=== PATIENT | female | born 1975 | race Caucasian/White ===

== ENCOUNTER 2019-01-27 16:22 | Emergency (ER) | payer OTHER ==
[2019-01-27] MEDS ORDERED: MORPHINE 4 MG/ML SYR ONE (17:13)
[2019-01-27] MEDS ORDERED: ONDANSETRON 4 MG/2 ML VIAL ONE (17:13)
[2019-01-27 17:16] LABS: Absolute Lymphocytes (CBC) 1.8 K/uL (0.7-4.9); Absolute Monocytes 0.8 K/uL (0.1-1.3); Absolute Neutrophil 6.4 K/uL (1.8-8.0); Basophils % 0.5 % (0-1.3); Eosinophils % 3.2 % (0-4.4); Hematocrit 37.6 % (36.0-45.0); Lymphocytes % 19.3 % (15.3-44.8); MPV 7.6 fL (7.6-11.3); Monocytes % 8.6 % (3.3-12.3); RBC Red Blood Cell Count 4.22 M/uL (3.86-4.86)
--- NOTE | 2019-01-27 17:26 | RAD REPORT ---
EXAM DESCRIPTION: RAD - Ribs Left - 01/27/2019 5:12 pm CLINICAL HISTORY: rib pain cough COMPARISON: No comparisons FINDINGS: No displaced rib fracture seen. No aggressive marrow lesion.
[2019-01-27 17:32] LABS: Albumin 3.6 g/dL (3.4-5.0); Bilirubin Total 0.4 mg/dL (0.2-1.0); Potassium 3.4 mmol/L (3.5-5.1); Protein, Total 7.2 g/dL (6.4-8.2)
--- NOTE | 2019-01-27 19:09 | ER ---
Nurse's Notes [facility] Name: Corrie Manuel Age: 43 yrs Sex: Female : 1975 Arrival Date: 01/27/2019 Time: 16:25 Bed 6 Private MD: Diagnosis: Acute bronchitis Presentation: 01/27 16:29 Presenting complaint: Patient states: cough, congestion x 1 week. Left sided rib pain sv when coughing x 3 days. Transition of care: patient was not received from another setting of care. Onset of symptoms was January 20, 2019. Initial Sepsis Screen: Does the patient meet any 2 criteria? No. Patient's initial sepsis screen is negative. Does the patient have a suspected source of infection? No. Patient's initial sepsis screen is negative. Care prior to arrival: None. 16:29 Method Of Arrival: Ambulatory sv 16:29 Acuity: CATRACHITA 2 sv 19:28 Risk Assessment: Do you want to hurt yourself or someone else? Patient reports no jd3 desire to harm self or others. 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 - Social history:: Smoking status: unknown. - Ebola Screening: : Patient negative for fever greater than or equal to 101.5 degrees Fahrenheit, and additional compatible Ebola Virus Disease symptoms. Screenin:42 Abuse screen: Denies threats or abuse. Denies injuries from another. Nutritional sg screening: No deficits noted. Tuberculosis screening: No symptoms or risk factors identified. Never had TB. Fall Risk None identified. Assessment: 16:40 General: Appears in no apparent distress. comfortable, well groomed, well developed, sg well nourished, Behavior is calm, cooperative, appropriate for age. Pain: Complains of pain in right lateral posterior chest and right lateral anterior chest Quality of pain is described as aching, tender. Neuro: Level of Consciousness is awake, alert, obeys commands, Oriented to person, place, time, situation, Moves all extremities. Full function Gait is steady, Speech is normal, Facial symmetry appears normal. Cardiovascular: Capillary refill is brisk in bilateral fingers Patient's skin is warm and dry. Chest pain quality is sharp, stabbing, is located in right chest wall. Respiratory: Airway is patent Respiratory effort is even, unlabored, Respiratory pattern is regular, symmetrical. GI: Abdomen is round non-distended. : No signs and/or symptoms were reported regarding the genitourinary system. EENT: No signs and/or symptoms were reported regarding the EENT system. Derm: Skin is pink, warm \T\ dry. Musculoskeletal: No signs and/or symptoms reported regarding the musculoskeletal system. 19:29 Reassessment: Patient appears in no apparent distress at this time. Patient and/or jd3 family updated on plan of care and expected duration. Pain level reassessed. Patient is alert, oriented x 3, equal unlabored respirations, skin warm/dry/pink. Patient states feeling better. Vital Signs: 16:31 BP 189 / 135; Pulse 98; Resp 20; Temp 98.5(O); Pulse Ox 100% ; Weight 90.72 kg; Height sv 5 ft. 2 in. (157.48 cm); Pain 8/10; 16:43 BP 185 / 116; Pulse 88; Resp 16; Pulse Ox 100% on R/A; iw 19:26 BP 183 / 105; Pulse 83; Resp 17 S; Pulse Ox 100% on R/A; jd3 16:31 Body Mass Index 36.58 (90.72 kg, 157.48 cm) sv ED Course: 16:25 Patient arrived in ED. as 16:30 Triage completed. sv 16:31 Arm band placed on. sv 16:41 Vern Oneal PA is PHCP. jmm 16:41 Marcellus King MD is Attending Physician. jmm 16:43 Mariana Baltazar, YUE is Primary Nurse. iw 17:00 Initial lab(s) drawn, by me, sent to lab. Inserted saline lock: 20 gauge in right dh3 antecubital area, using aseptic technique. Blood collected. 17:08 Awaiting radiology results. sg 17:11 Ribs Left XRAY In Process Unspecified. EDMS 19:26 Patient has correct armband on for positive identification. Bed in low position. Call jd3 light in reach. Side rails up X 1. Adult w/ patient. 19:26 Assist provider with bone marrow aspiration. IV discontinued, intact, bleeding jd3 controlled, No redness/swelling at site. Pressure dressing applied. Administered Medications: 17:20 Drug: morphine 4 mg Route: IVP; Site: right antecubital; iw 19:00 Follow up: Response: No adverse reaction jd3 17:20 Drug: Zofran 4 mg Route: IVP; Site: right antecubital; iw 19:00 Follow up: Response: No adverse reaction jd3 19:14 Drug: morphine 2 mg Route: IVP; Site: right antecubital; jd3 19:29 Follow up: Response: No adverse reaction jd3 Outcome: 19:08 Discharge ordered by MD. natali 19:28 Discharged to home ambulatory, with family. jd3 19:28 Condition: stable 19:28 Discharge instructions given to patient, family, Instructed on discharge instructions, follow up and referral plans. medication usage, Demonstrated understanding of instructions, follow-up care, medications, Prescriptions given X 3. 19:30 Patient left the ED. jd3 Signatures: Dispatcher [employer] Aby Kohler RN RN Danilo Olvera RN YUE Vern Oneal PA PA jmm Martinez, Amelia as Williams, Irene, RN RN Jessica Green [facility] Roderick Terrazas RN RN jd3 Corrections: (The following items were deleted from the chart) 16:31 16:29 Acuity: CATRACHITA 3 [facility]
--- NOTE | 2019-01-27 19:09 | EDPHYS ---
Physician Documentation [facility] Name: Corrie Manuel Age: 43 yrs Sex: Female : 1975 Arrival Date: 01/27/2019 Time: 16:25 Bed 6 Private MD: ED Physician Marcellus King HPI: 01/27 16:46 This 43 yrs old Female presents to ER via Ambulatory with complaints of Rib jmm Pain. 16:46 The patient or guardian reports cough. Onset: The symptoms/episode began/occurred jmm gradually, 3 week(s) ago. This is a 43 year old female with a history of bipolar that presents to the ED with complaints of left sided rib pain. Patient states that she developed a cough approx 3 weeks ago. The entire family had similar symptoms. Patient states approx 1 week ago she developed left sided rib pain and believs she may have injured her ribs while holding her left side while coughing. Patient denies fever, denies chills, denies chest pain. . 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 - Social history:: Smoking status: unknown. - Ebola Screening: : Patient negative for fever greater than or equal to 101.5 degrees Fahrenheit, and additional compatible Ebola Virus Disease symptoms. ROS: 16:46 Constitutional: Negative for fever, chills, and weight loss, Cardiovascular: Negative jmm for chest pain, palpitations, and edema. 16:46 Respiratory: Positive for cough. 16:46 All other systems are negative. Exam: 16:46 Constitutional: This is a well developed, well nourished patient who is awake, alert, jmm and in no acute distress. Head/Face: atraumatic. Eyes: EOMI, no conjunctival erythema appreciated ENT: Moist Mucus Membranes Neck: Trachea midline, Supple 16:46 Cardiovascular: Regular rate and rhythm. No edema appreciated Respiratory: Normal respirations, no respiratory distress appreciated Abdomen/GI: Non distended, soft Back: Normal ROM 16:46 MS/ Extremity: Moves all extremities, no obvious deformities appreciated, no edema noted to the lower extremities Neuro: Awake and alert, normal gait Psych: Behavior is normal, Mood is normal, Patient is cooperative and pleasant 16:46 Chest/axilla: ecchymosis noted to the left lateral ribs, tender to palpation, reproduces symptoms. . 16:46 Skin: ecchymosis noted ot the left lateral ribs. Vital Signs: 16:31 BP 189 / 135; Pulse 98; Resp 20; Temp 98.5(O); Pulse Ox 100% ; Weight 90.72 kg; Height sv 5 ft. 2 in. (157.48 cm); Pain 8/10; 16:43 BP 185 / 116; Pulse 88; Resp 16; Pulse Ox 100% on R/A; iw 19:26 BP 183 / 105; Pulse 83; Resp 17 S; Pulse Ox 100% on R/A; jd3 16:31 Body Mass Index 36.58 (90.72 kg, 157.48 cm) sv MDM: 16:46 Patient medically screened. [facility] 19:07 Data reviewed: vital signs, nurses notes. Counseling: I had a detailed discussion with natali the patient and/or guardian regarding: the historical points, exam findings, and any diagnostic results supporting the discharge/admit diagnosis, radiology results, the need for outpatient follow up, to return to the emergency department if symptoms worsen or persist or if there are any questions or concerns that arise at home. ED course: Patient states feeling much better. HPI and symptoms appear consistent with diagnosis. I do not suspect acs. Pain is reproduceable. I discussed HTN with the patient along with the need to have this further evaluated. Patient given f/u info for PCP. Patient given strict return precautions. Patient understood and agrees with the plan of care. . 01/27 16:50 Order name: CBC with Diff; Complete Time: 17:27 [facility] 01/27 16:50 Order name: CMP; Complete Time: 17:33 [facility] 01/27 16:50 Order name: Ribs Left XRAY; Complete Time: 17:27 [facility] 01/27 18:26 Order name: INCENTIVE SPIROMETRY [facility] 01/27 16:50 Order name: Saline Lock; Complete Time: 17:05 [facility] Administered Medications: 17:20 Drug: morphine 4 mg Route: IVP; Site: right antecubital; iw 19:00 Follow up: Response: No adverse reaction jd3 17:20 Drug: Zofran 4 mg Route: IVP; Site: right antecubital; iw 19:00 Follow up: Response: No adverse reaction jd3 19:14 Drug: morphine 2 mg Route: IVP; Site: right antecubital; jd3 19:29 Follow up: Response: No adverse reaction jd3 Disposition: 01/27/19 19:08 Discharged to Home. Impression: Acute bronchitis. - Condition is Stable. - Discharge Instructions: Acute Bronchitis, Adult. - Prescriptions for Prednisone 20 mg Oral Tablet - take 3 tablet by ORAL route once daily for 5 days; 15 tablet. Tylenol- Codeine #3 300-30 mg Oral Tablet - take 1 tablet by ORAL route every 6 hours As needed; 12 tablet. Albuterol Sulfate 90 mcg/actuation - inhale 1-2 puff by INHALATION route every 4-6 hours; 1 Inhaler. - Medication Reconciliation Form, Thank You Letter, Antibiotic Education, Prescription Opioid Use form. - Follow up: Private Physician; When: 2 - 3 days; Reason: Recheck today's complaints, Continuance of care, Re-evaluation by your physician. Addendum: 01/28/2019 22:43 Co-signature as Attending Physician, Marcellus King MD. r n Signatures: Dispatcher [employer] Aby Kohler, Vern White RN, PA PA jmm Williams, Irene, RN RN iw Nieto, Roman, MD MD rn Davies, Jonathon, RN RN jd3 Corrections: (The following items were deleted from the chart) 01/27 19:30 19:08 01/27/2019 19:08 Discharged to Home. Impression: Acute bronchitis. Condition is jd3 Stable. Forms are Medication Reconciliation Form, Thank You Letter, Antibiotic Education, Prescription Opioid Use. Follow up: Private Physician; When: 2 - 3 days; Reason: Recheck today's complaints, Continuance of care, Re-evaluation by your physician. natali 20:26 19:07 ED course: Patient states feeling much better. I discussed HTN with the patient natali along with the need to have this further evaluated. Patient given f/u info for PCP. Patient given strict return precautions. Patient understood and agrees with the plan of care. . natali
[2019-01-27] MEDS ORDERED: MORPHINE 2 MG/ML SYR ONE (19:24)
[2019-01-27 19:59] VITALS: O2SAT 100
[2019-01-27 20:01] VITALS: TEMP 98.5
[2019-01-27 20:02] VITALS: BP 183/105
== END 2019-01-27 19:30 | disposition home or self-care (01) ==
LOC: ER 16:22
DX: J20.9 Acute bronchitis, unspecified (principal); F31.9 Bipolar disorder, unspecified; F41.9 Anxiety disorder, unspecified
CPT/HCPCS: 36415; 80053; 85025; 96374; 96375; 99284; J2270; J2405

== ENCOUNTER 2022-05-13 17:27 | Emergency (ER) | payer OTHER, SELFPAY ==
--- OUTSIDE RECORDS SUMMARY | 2022-05-13 17:32 | XMS REPORT | Continuity of Care Document ---
:1975 Author Organization [facility] t Address [address] [place] [address] Care Team Providers Name Role Phone Lab, Adc Fam Pob I Attending Clinician Unavailable Rad Machado Attending Clinician Doctor Unassigned, [place] Attending Clinician Unavailable Pcp, Patient Does Not Have A Attending Clinician [id number] [phone] FARZANEH HENDRICKSON Attending Clinician Unavailable Farzaneh Arvizu Attending Clinician RAD FRIAS Attending Clinician Unavailable Payers Payer Name Policy Type Policy Number Effective Date Expiration Date S ource Problems This patient has no known problems. Allergies, Adverse Reactions, Alerts Allergy Allergy Status Severity Reaction(s) Onset Inactive Treating Comm ents Source Name Type Date Date Clinician NO KNOWN Drug Active Univers ALLERGIE Class ity of [facility] Social History Social Habit Start Date Stop Date Quantity Comments Source Sex [facility] to SARS-CoV-2 [facility] Smoking Status Start Date Stop Date Source Unknown if ever smoked [facility] Medications This patient has no known medications. Procedures This patient has no known procedures. Encounters Start End Encounter Admission Attending Care Care Encounter Source Date/Time Date/Time Type Type Clinicians Facility Department ID 2020-04-10 2020-04-10 Laboratory Lab, Adc Fam Pob I [facility] [id number] Univers 13:40:34 14:00:34 Only Rad Frias [facility] [id number] ity [facility] [id number] Eddie as Professio [phone] [place] [address] [address] 2020-04-10 2020-04-10 Outpatient R [facility] [id number] Univers 14:00:00 14:00:00 [id number] ity of [facility] 2020-04-10 2020-04-10 Outpatient R [facility] [id number] Univers 14:00:00 14:00:00 ity of [facility] 2020-04-10 2020-04-10 Letter Doctor ISH [id number] Univers 00:00:00 00:00:00 (Out) Unassigned, MAXX [id number] ity of [place] [facility] [id number] Eddie as [phone] [address] 2020-04-05 2020-04-05 Telephone Pcp, [facility] [id number] Univers 00:00:00 00:00:00 Patient Health [id number] it y of Does Not [place] [id number] [place] Professio [phone] [address] 2020-04-03 2020-04-03 [facility] [id number] Univers 17:40:00 17:40:00 FARZANEH neriian [facility] 2020-04-03 2020-04-03 Laboratory Lab, Adc Fam Pob I [facility] 1.2. [id number] Univers 17:07:21 17:27:21 Only Farzaneh Hendrickson A Health [id number] ity of [place] [id number] Eddie as Professio [phone] [address] 2020-03-18 2020-03-18 [facility] [id number] Univers 14:00:00 14:45:15 RAD jain of [facility] Results This patient has no known results.
[2022-05-13] MEDS ORDERED: FAMOTIDINE 20 MG/2 ML VIAL IV ONE (18:40)
[2022-05-13 18:43] LABS: Absolute Lymphocytes (CBC) 2.1 K/uL (0.7-4.9); Hematocrit 38.2 % (36.0-45.0); Lymphocytes % 16.9 % (15.3-44.8); MPV 8.4 fL (7.6-11.3); RBC Red Blood Cell Count 4.44 M/uL (3.86-4.86)
[2022-05-13] MEDS ORDERED: HYDRALAZINE HCL 20 MG/ML VIAL ONE (18:58)
[2022-05-13 19:08] LABS: Albumin 3.5 g/dL (3.4-5.0); Bilirubin Total 1.1 mg/dL (0.2-1.0); Protein, Total 7.2 g/dL (6.4-8.2)
[2022-05-13 19:10] LABS: Potassium 2.8 mmol/L (3.5-5.1)
[2022-05-13] MEDS ORDERED: MORPHINE 2 MG/ML SYR ONE (19:56)
[2022-05-13] MEDS ORDERED: ONDANSETRON 4 MG/2 ML VIAL ONE (19:56)
[2022-05-13] MEDS ORDERED: POTASSIUM 25 MEQ EFFERV TAB ONE (19:56)
[2022-05-13 20:31] LABS: Urine Blood Negative (Negative); Urine Glucose Negative (Negative); Urine Protein Negative (Negative)
--- NOTE | 2022-05-13 21:39 | RAD REPORT ---
EXAM DESCRIPTION: CT - Abdomen Pelvis W Contrast - 05/13/2022 8:38 pm CLINICAL HISTORY: sdf COMPARISON: No comparisons TECHNIQUE: Biphasic, helical CT imaging of the abdomen and pelvis was performed following 100 ml non -ionic IV contrast. No oral contrast administered. All CT scans are performed using dose optimization technique as appropriate and may include automated exposure control or mA/KV adjustment according to patient size. FINDINGS: No suspicious findings in the lung bases. The liver, spleen, and pancreas show no suspicious findings. Liver attenuation indicates fatty infilt ration. Gallbladder and biliary tree are also without suspicious finding. Symmetric renal function is seen with no hydronephrosis or suspicious renal mass. No pyelonephritis o r acute parenchymal process. No bladder abnormalities. No adrenal abnormalities. Uterus and ovaries s how no suspicious findings. No dilated bowel loops or bowel wall thickening. Appendix is not well defined. No direct or indirect evidence for appendicitis. No free air, free fluid or inflammatory stranding. No hernia, mass or bul ky lymphadenopathy. No suspicious bony findings. IMPRESSION: Contrast enhanced CT abdomen and pelvis showing no acute or emergent finding.
--- NOTE | 2022-05-13 21:48 | EDPHYS ---
Physician Documentation [facility] Name: Corrie Manuel Age: 46 yrs Sex: Female : 1975 Arrival Date: 05/13/2022 Time: 17:29 Bed 20 Private MD: ED Physician Jerman Bates HPI: 05/13 18:07 This 46 yrs old Female presents to ER via Ambulatory with complaints of jl9 Abdominal Pain. 18:07 The patient presents with abdominal pain that is diffuse. Onset: The symptoms/episode jl9 began/occurred this morning. The symptoms do not radiate. Associated signs and symptoms: Pertinent positives: Belching. . The symptoms are described as crampy. Modifying factors: The symptoms are alleviated by nothing, the symptoms are aggravated by nothing. Severity of pain: in the emergency department the pain has improved is a 2 / 10. 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 - Social history:: Smoking status: Patient denies any tobacco usage or history of. ROS: 18:08 Constitutional: Negative for fever, chills, and weight loss, Eyes: Negative for injury, jl9 pain, redness, and discharge, ENT: Negative for injury, pain, and discharge, Neck: Negative for injury, pain, and swelling, Cardiovascular: Negative for chest pain, palpitations, and edema, Respiratory: Negative for shortness of breath, cough, wheezing, and pleuritic chest pain. 18:08 Back: Negative for injury and pain, : Negative for injury, bleeding, discharge, and swelling, MS/Extremity: Negative for injury and deformity, Skin: Negative for injury, rash, and discoloration, Neuro: Negative for headache, weakness, numbness, tingling, and seizure, Psych: Negative for depression, anxiety, suicide ideation, homicidal ideation, and hallucinations, Allergy/Immunology: Negative for hives, rash, and allergies, Endocrine: Negative for neck swelling, polydipsia, polyuria, polyphagia, and marked weight changes, Hematologic/Lymphatic: Negative for swollen nodes, abnormal bleeding, and unusual bruising. 18:08 Abdomen/GI: Positive for abdominal pain. Exam: 18:09 Constitutional: This is a well developed, well nourished patient who is awake, alert, jl9 and in no acute distress. Head/Face: Normocephalic, atraumatic. Eyes: Pupils equal round and reactive to light, extra-ocular motions intact. Lids and lashes normal. Conjunctiva and sclera are non-icteric and not injected. Cornea within normal limits. Periorbital areas with no swelling, redness, or edema. ENT: Mucous membranes moist. Neck: Trachea midline, no thyromegaly or masses palpated, and no cervical lymphadenopathy. Supple, full range of motion without nuchal rigidity, or vertebral point tenderness. No Meningismus. Chest/axilla: Normal chest wall appearance and motion. Nontender with no deformity. No lesions are appreciated. Cardiovascular: Regular rate and rhythm with a normal S1 and S2. No gallops, murmurs, or rubs. Normal PMI, no JVD. No pulse deficits. Respiratory: Lungs have equal breath sounds bilaterally, clear to auscultation and percussion. No rales, rhonchi or wheezes noted. No increased work of breathing, no retractions or nasal flaring. 18:09 Abdomen/GI: Inspection: abdomen appears normal, Bowel sounds: normal, Palpation: mild abdominal tenderness, in all quadrants. 18:09 Back: No spinal tenderness. No costovertebral tenderness. Full range of motion. jl9 Skin: Warm, dry with normal turgor. Normal color with no rashes, no lesions, and no evidence of cellulitis. MS/ Extremity: Pulses equal, no cyanosis. Neurovascular intact. Full, normal range of motion. Neuro: Awake and alert, GCS 15, oriented to person, place, time, and situation. Cranial nerves II-XII grossly intact. Motor strength 5/5 in all extremities. Sensory grossly intact. Cerebellar exam normal. Normal gait. Psych: Awake, alert, with orientation to person, place and time. Behavior, mood, and affect are within normal limits. Vital Signs: 17:44 BP 199 / 109; Pulse 86; Resp 16; Temp 98.3; Pulse Ox 100% on R/A; Weight 90.72 kg; jh5 Height 5 ft. 2 in. (157.48 cm); Pain 6/10; 18:39 BP 229 / 96; Pulse 77; Resp 17; Pulse Ox 98% ; Pain 2/10; jh6 19:40 BP 192 / 98; Pulse 81; Resp 17 S; Pulse Ox 100% on R/A; ha1 20:20 BP 167 / 98; Pulse 80; Resp 18 S; Pulse Ox 99% on R/A; ha1 17:44 Body Mass Index 36.58 (90.72 kg, 157.48 cm) 5 MDM: 18:07 Patient medically screened. [facility] 18:09 Data reviewed: vital signs, nurses notes. Test interpretation: by ED physician or [facility] midlevel provider: ECG, NSR. 21:46 Data reviewed: lab test result(s), radiologic studies. Counseling: I had a detailed [facility] discussion with the patient and/or guardian regarding: the historical points, exam findings, and any diagnostic results supporting the discharge/admit diagnosis, lab results, radiology results, the need for outpatient follow up, to return to the emergency department if symptoms worsen or persist or if there are any questions or concerns that arise at home. 05/13 18:02 Order name: CBC with Diff; Complete Time: 18:53 [facility] 05/13 18:02 Order name: CMP; Complete Time: 19:14 [facility] 05/13 18:02 Order name: Lipase; Complete Time: 19:14 [facility] 05/13 18:06 Order name: Troponin High Sensitivity; Complete Time: 19:14 [facility] 05/13 20:29 Order name: Urine Culture [facility] 05/13 20:31 Order name: Urine Dipstick-Ancillary; Complete Time: 20:33 [facility] 05/13 18:06 Order name: EKG; Complete Time: 18:07 [facility] 05/13 18:06 Order name: CT Abd/Pelvis - IV Contrast Only; Complete Time: 21:40 [facility] 05/13 20:33 Order name: Urine --Ancillary (enter results) 2 05/13 18:02 Order name: IV Saline Lock; Complete Time: 18:29 [facility] 05/13 18:02 Order name: Labs collected and sent; Complete Time: 18:29 [facility] 05/13 18:02 Order name: Urine Test (obtain specimen); Complete Time: 20:32 [facility] 05/13 20:29 Order name: Urine Dipstick-Ancillary (obtain specimen); Complete Time: 20:32 [facility] Administered Medications: 18:36 Drug: Pepcid (famotidine) 20 mg Route: IVP; Site: right antecubital; 6 19:00 Drug: hydrALAZINE 10 mg Route: IVP; Site: right antecubital; 6 20:07 Drug: morphine 2 mg {Note: pain 7/10 HR 81 RR 17 .} Route: IVP; Infused Over: 4 mins; ha1 Site: left antecubital; 20:20 Follow up: Response: No adverse reaction; Pain is decreased; RASS: Alert and Calm (0) ha1 20:08 Drug: Potassium Effervescent Tablet 50 mEq Route: PO; ha1 20:20 Follow up: Response: No adverse reaction ha1 20:08 Drug: Ondansetron 4 mg Route: IVP; Site: left antecubital; ha1 20:20 Follow up: Response: No adverse reaction ha1 Disposition: 18:53 Co-signature as Attending Physician, Jerman Bates DO I was immediately available on-site ms3 in the Emergency Department for consultation in the care of the patient.. Disposition Summary: 05/13/22 21:47 Discharge Ordered Location: Home jm Condition: Stable jm Diagnosis - Abdominal pain, unspecified jmm - UTI/ Urinary tract infection, site not specified [facility] Followup: [facility] - With: Private Physician - When: 2 - 3 days - Reason: Recheck today's complaints, Continuance of care, Re-evaluation by your physician Discharge Instructions: - Discharge Summary Sheet jmm - Abdominal Pain, Adult jmm - Urinary Tract Infection, Adult [facility] Forms: - Medication Reconciliation Form [facility] - Thank You Letter [facility] - Antibiotic Education [facility] - Prescription Opioid Use [facility] Prescriptions: - Cipro 500 mg Oral Tablet - take 1 tablet by ORAL route every 12 hours for 10 days; 20 tablet; Refills: 0, [facility] Product Selection Permitted Signatures: Dispatcher [employer] EDVern Robertson PA PA Te Kap[place], QUALITY TECH-C QUALITY TECH-Cla1 Jerman Bates DO DO ms3 Mare Cruz RN RN jh5 Ariana Haq RN RN jh6 Josh Patel 9 Justa Marcos RN RN ha1
--- NOTE | 2022-05-13 21:48 | ER ---
Nurse's Notes [facility] Name: Corrie Manuel Age: 46 yrs Sex: Female : 1975 Arrival Date: 05/13/2022 Time: 17:29 Bed 20 Private MD: Diagnosis: Abdominal pain, unspecified;UTI/ Urinary tract infection, site not specified Presentation: 05/13 17:44 Chief complaint: Patient states: woke up at 3am with severe abdominal pain, pain jh5 patients states pain x4 quadrants. Pt states she has no appendix. No vomiting, lots of belching, took reflux medicine. Coronavirus screen: Vaccine status: Patient reports being unvaccinated. Client denies travel out of the [place] in the last 14 days. Ebola Screen: Patient negative for fever greater than or equal to 101.5 degrees Fahrenheit, and additional compatible Ebola Virus Disease symptoms Patient denies exposure to infectious person. Patient denies travel to an Ebola-affected area in the 21 days before illness onset. Initial Sepsis Screen: Does the patient meet any 2 criteria? No. Patient's initial sepsis screen is negative. Does the patient have a suspected source of infection? No. Patient's initial sepsis screen is negative. Risk Assessment: Do you want to hurt yourself or someone else? Patient reports no desire to harm self or others. Onset of symptoms was May 13, 2022. 17:44 Method Of Arrival: Ambulatory [facility] 17:44 Acuity: CATRACHITA 2 5 Triage Assessment: 17:52 General: Appears uncomfortable, well groomed, well developed, well nourished, Behavior 5 is calm, cooperative, appropriate for age. Pain: Complains of pain in abdomen. GI: Reports lower abdominal pain, upper abdominal pain, gaseousness. 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 - Social history:: Smoking status: Patient denies any tobacco usage or history of. Screenin:30 Abuse screen: Denies threats or abuse. Denies injuries from another. Nutritional 6 screening: No deficits noted. Tuberculosis screening: No symptoms or risk factors identified. Fall Risk IV access (20 points). Assessment: 18:37 General: Appears in no apparent distress. comfortable, Behavior is calm, cooperative. jh6 Pain: Complains of pain in abdomen Pain currently is 3 out of 10 on a pain scale. Quality of pain is described as crampy, sharp, Pain began suddenly, Is intermittent, Aggravated by increased activity, repositioning. GI: Bowel sounds present X 4 quads. Abd is soft X 4 quads. 20:07 Reassessment: Patient and/or family updated on plan of care and expected duration. Pain ha1 level reassessed. Patient is alert, oriented x 3, equal unlabored respirations, skin warm/dry/pink. pain 7/10. 20:20 Reassessment: Patient and/or family updated on plan of care and expected duration. Pain ha1 level reassessed. Patient is alert, oriented x 3, equal unlabored respirations, skin warm/dry/pink. Vital Signs: 17:44 BP 199 / 109; Pulse 86; Resp 16; Temp 98.3; Pulse Ox 100% on R/A; Weight 90.72 kg; jh5 Height 5 ft. 2 in. (157.48 cm); Pain 6/10; 18:39 BP 229 / 96; Pulse 77; Resp 17; Pulse Ox 98% ; Pain 2/10; jh6 19:40 BP 192 / 98; Pulse 81; Resp 17 S; Pulse Ox 100% on R/A; ha1 20:20 BP 167 / 98; Pulse 80; Resp 18 S; Pulse Ox 99% on R/A; ha1 17:44 Body Mass Index 36.58 (90.72 kg, 157.48 cm) 5 ED Course: 17:29 Patient arrived in ED. rg4 17:34 Josh Patel is PHCP. jl9 17:34 Jerman Bates DO is Attending Physician. jl9 17:52 Triage completed. jh5 17:52 Arm band placed on right wrist. jh5 18:20 Inserted saline lock: 20 gauge in right antecubital area, using aseptic technique. jh6 Blood collected. 18:30 Bed in low position. Call light in reach. Side rails up X 1. jh6 18:39 Ariana Haq, YUE is Primary Nurse. jh6 18:39 No provider procedures requiring assistance completed. 6 19:47 PHCP role handed off by Josh Patel [facility] 19:47 Vern Oneal PA is PHCP. [facility] 20:07 Door closed. Noise minimized. Lights dimmed. ha1 20:40 CT Abd/Pelvis - IV Contrast Only In Process Unspecified. EDMS 22:16 IV discontinued, intact, bleeding controlled, No redness/swelling at site. Pressure lg3 dressing applied. Administered Medications: 18:36 Drug: Pepcid (famotidine) 20 mg Route: IVP; Site: right antecubital; 6 19:00 Drug: hydrALAZINE 10 mg Route: IVP; Site: right antecubital; 6 20:07 Drug: morphine 2 mg {Note: pain 7/10 HR 81 RR 17 .} Route: IVP; Infused Over: 4 mins; ha1 Site: left antecubital; 20:20 Follow up: Response: No adverse reaction; Pain is decreased; RASS: Alert and Calm (0) ha1 20:08 Drug: Potassium Effervescent Tablet 50 mEq Route: PO; ha1 20:20 Follow up: Response: No adverse reaction 1 20:08 Drug: Ondansetron 4 mg Route: IVP; Site: left antecubital; ha1 20:20 Follow up: Response: No adverse reaction ha1 Medication: 17:53 VIS not applicable for this client. 5 Outcome: 21:47 Discharge ordered by . [facility] 22:12 Patient left the ED. vc1 22:16 Discharged to home ambulatory, with significant other. lg3 22:16 Condition: stable 22:16 Discharge instructions given to patient, Instructed on discharge instructions, follow up and referral plans. medication usage, Demonstrated understanding of instructions, follow-up care, medications, Prescriptions given X 1. Signatures: Dispatcher [employer] EDMS Vern Oneal PA PA Natali Mirza rg4 Payton Cosme RN RN lg3 Mare Cruz RN RN jh5 Ariana Haq RN RN jh6 Shyanne Conner RN RN vc1 Josh Patel jl9 Justa Marcos, YUE RN 1 Corrections: (The following items were deleted from the chart) 21:12 20:07 Reassessment: Patient and/or family updated on plan of care and expected ha1 duration. Pain level reassessed. Patient is alert, oriented x 3, equal unlabored respirations, skin warm/dry/pink. ha1
[2022-05-14 00:28] VITALS: TEMP 98.3
[2022-05-14 00:44] VITALS: BP 167/98; O2SAT 99
--- NOTE | 2022-05-14 14:28 | EKG ---
Test Date: 2022-05-13 Test Time: 18:04:22 [place]: JR Kowalski MEASUREMENT RESULTS: Intervals: Rate: 81 [place]: 170 QRSD: 92 QT: 394 QTc: 457 [place]: P: 30 NJ: 170 QRS: 15 T: 168 INTERPRETIVE STATEMENTS: Normal sinus rhythm Cannot rule out Anterior infarct, age undetermined ST & T wave abnormality, consider inferolateral ischemia Abnormal ECG No previous ECG available for comparison Electronically Signed On 05-14-22 14:27:55 CDT by Jm Luo
== END 2022-05-13 22:12 | disposition home or self-care (01) ==
LOC: ER 17:27
DX: N39.0 Urinary tract infection, site not specified (principal)
CPT/HCPCS: 36415; 74177; 80053; 81003; 81025; 83690; 84484; 85025; 87086; 87088; 93005; J0360; J2270; J2405; Q9967

== ENCOUNTER 2024-07-14 07:38 | Day surgery (SDC) | payer OTHER ==
[2024-07-14] MEDS: Ringers Lactate 1,000 ML IV ONE (08:10)
[2024-07-14 08:35] LABS: Urine Specific Gravity/Preg >1.030 (1.005-1.030)
[2024-07-14] MEDS ORDERED: LIDOCAINE 1% MPF 2 ML AMPULE ONE (09:00)
[2024-07-14] MEDS ORDERED: propofoL 200 MG/20 ML VIAL IV ONE ×2 (09:00→09:17)
[2024-07-14] MEDS: ONDANSETRON 4 MG/2 ML VIAL ONE (10:27)
[2024-07-14 11:03] VITALS: O2SAT 100
[2024-07-14 11:26] VITALS: BP 129/84; TEMP 97.2
== END 2024-07-14 10:43 | disposition home or self-care (01) ==
LOC: OR 07:38
PROVIDERS: ATTEND Surgery
PROC: 0DBL8ZX Excision of Transverse Colon, Via Natural or Artificial Opening Endoscopic, Diagnostic (ICD-10-PCS; 2024-07-14)
PROC: 0DBN8ZX Excision of Sigmoid Colon, Via Natural or Artificial Opening Endoscopic, Diagnostic (ICD-10-PCS; 2024-07-14)
PROC: 0DBP8ZX Excision of Rectum, Via Natural or Artificial Opening Endoscopic, Diagnostic (ICD-10-PCS; 2024-07-14)
PROC: 0DBH8ZX Excision of Cecum, Via Natural or Artificial Opening Endoscopic, Diagnostic (ICD-10-PCS; principal; 2024-07-14 09:15)
DX: Z12.11 Encounter for screening for malignant neoplasm of colon (principal); D12.0 Benign neoplasm of cecum; D12.3 Benign neoplasm of transverse colon; K52.9 Noninfective gastroenteritis and colitis, unspecified; K62.89 Other specified diseases of anus and rectum
CPT/HCPCS: 81025; 88305; 45385; J2704 ×2; J2405; J7120